=== PATIENT | female | born 1965 | race Caucasian/White ===

== ENCOUNTER 2019-10-07 12:11 | Outpatient (RCR) | payer OTHER, SELFPAY ==
[2019-10-07 13:25] VITALS: BP 101/58; PULSE 60; RESP 16; O2SAT 96; BMI 26.5
== END 2019-12-31 15:24 | disposition home or self-care (01) ==
PROVIDERS: PCP Family Medicine
DX: Z98.61 Coronary angioplasty status (principal)
CPT/HCPCS: 93798

== ENCOUNTER 2022-10-25 13:31 | Outpatient (CLI) | payer OTHER, SELFPAY ==
--- NOTE | ~2022-10-25 | XR_ITS ---
Clinical Indication: Chest pain PA and lateral views of the chest: Comparison: 09/06/2019 Findings: The lungs are clear, without evidence of focal consolidation or pleural effusion. Cardiome diastinal silhouette is within normal limits. Stable calcified left hilar/AP window lymph nodes. Bone s and soft tissues are unremarkable. Impression: Clear lungs. Stable calcified lymph nodes, as above. Reviewed, dictated and finalized at location . PATROLLER Impression: Clear lungs. Stable calcified lymph nodes, as above.
== END 2022-10-25 13:32 | disposition home or self-care (01) ==
LOC: CHSIMG 13:36
PROVIDERS: PCP Family Medicine; Visit Provider Family Medicine
DX: R07.89 Other chest pain (principal)
CPT/HCPCS: 71046

== ENCOUNTER 2023-08-26 08:50 | Outpatient (CLI) | payer OTHER, SELFPAY ==
--- NOTE | 2023-08-26 09:17 | ECG_ITS ---
Measurements Intervals [place] Rate: 70 P: 49 AL: 154 QRS: 24 QRSD: 105 T: 29 QT: 418 QTc: 452 Interpretive Statements SINUS RHYTHM INCOMPLETE RIGHT BUNDLE BRANCH BLOCK DELAYED PRECORDIAL R/S TRANSITION LOW QRS VOLTAGE IN PRECORDIAL LEADS BORDERLINE ECG COMPARED TO ECG 09/06/2019 09:08:44 SINUS RHYTHM NOW PRESENT Electronically Signed On 08-26-2023 9:57:07 WATER OPERATOR by Anthony Muse D.O.
[2023-08-26 09:25] LABS: Basophils Absolute Auto 0.02 K/mm3 (0.00-0.10); Basophils Percent Auto 0.3 % (0.0-1.0); Eosinophils Absolute Auto 0.13 K/mm3 (0.02-0.50); Eosinophils Percent Auto 1.8 % (1.0-6.0); Hematocrit 41.6 % (35.0-49.0); Hemoglobin 13.5 g/dL (12.0-15.0); Immature Granulocyte Absolute 0.02 K/mm3 (0.00-0.00); Immature Granulocyte Percent A 0.3 % (0.0-0.0); Lymphocytes Absolute Auto 2.34 K/mm3 (1.10-4.50); Lymphocytes Percent Auto 31.6 % (18.0-42.0); Mean Corpuscular HGB Conc 32.5 g/dL (32.0-36.0); Mean Corpuscular Volume 89.5 fL (78.0-102.0); Mean Platelet Volume 9.3 fl (9.2-11.8); Monocytes Absolute Auto 0.47 K/mm3 (0.10-0.90); Monocytes Percent Auto 6.4 % (2.0-11.0); Neutrophils Absolute Auto 4.4 K/mm3 (1.7-7.2); Neutrophils Percent Auto 59.6 % (50.0-70.0); Platelet Count Result 301 K/mm3 (150-420); Red Blood Count 4.65 M/mm3 (4.20-5.40); Red Cell Distribution Width 13.1 % (11.6-14.4); White Blood Count 7.4 K/mm3 (4.8-10.8)
[2023-08-26 10:45] LABS: Alanine Aminotransferase 38 U/L (14-59); Albumin Level 4.1 g/dL (3.4-5.0); Alkaline Phosphatase 60 U/L (46-116); Anion Gap 13 mmol/L (8-16); Aspartate Amino Transferase 22 U/L (15-37); Bilirubin,Total 0.3 mg/dL (0.00-1.00); Blood Urea Nitrogen 29 mg/dL (7-18); Calcium 9.5 mg/dL (8.5-10.1); Carbon Dioxide 27 mmol/L (21-32); Chloride 106 mmol/L (98-108); Estimated Glomerular Filt Rate > 60; Glucose 115 mg/dL (70-99); Osmolality Calculated 308 mOsm/kg (285-295); Potassium 4.5 mmol/L (3.5-5.1); Sodium 146 mmol/L (136-145); Total Protein 6.8 g/dL (6.4-8.2)
== END 2023-08-26 08:51 | disposition home or self-care (01) ==
LOC: CHSLAB 08:54
PROVIDERS: PCP Family Medicine; Visit Provider Family Medicine
DX: Z01.818 Encounter for other preprocedural examination (principal); I45.19 Other right bundle-branch block
CPT/HCPCS: 36415; 80053; 85025; 93005

== ENCOUNTER 2023-10-15 10:14 | Outpatient (CLI) | payer OTHER, SELFPAY ==
--- NOTE | ~2023-10-15 | US_ITS ---
EXAMINATION: US right upper quadrant DATE: 10/15/2023 10:32 INDICATION: Abnormal liver function tests. TECHNIQUE: Multiple grayscale and Doppler ultrasound images of the abdomen were obtained. COMPARISON: None FINDINGS: The visualized portions of the head, body, and tail of the pancreas are normal. The liver i s normal without focal lesion. There is normal flow in main portal vein. The gallbladder is normal in size. No gallstones or gallbladder wall thickening. There is no sonographic Booker sign. The common duct is normal and measures 3 mm. IMPRESSION: 1. Normal right upper quadrant ultrasound. Reviewed, dictated and finalized at location A. ILE TECHNICAL OFFICER
== END 2023-10-15 10:15 | disposition home or self-care (01) ==
LOC: CHSIMG 10:16
PROVIDERS: PCP Family Medicine; Visit Provider Family Medicine
DX: R74.8 Abnormal levels of other serum enzymes (principal)
CPT/HCPCS: 76705